=== PATIENT | female | born 1970 ===

== ENCOUNTER → 2019-06-07 | Outpatient (REF) | payer BC | LOC: M LAB LCGH 13:26 | PROVIDERS: ATTEND Obstetrics & Gynecology | DX: Z12.4 Encounter for screening for malignant neoplasm of cervix (principal) | CPT/HCPCS: 87624; G0123 ==

== ENCOUNTER → 2021-11-14 | Outpatient (CLI) | payer SELFPAY | LOC: M LABSMTC 09:19 | PROVIDERS: ATTEND Pediatrics | DX: Z11.52 Encounter for screening for COVID-19 (principal) ==

== ENCOUNTER → 2024-04-26 | Outpatient (REF) | LOC: M EMP 09:41 | PROVIDERS: ATTEND Family Medicine | DX: Z11.52 Encounter for screening for COVID-19 (principal) ==

== ENCOUNTER → 2024-06-29 | Outpatient (CLI) | LOC: M SOG 14:35 | PROVIDERS: ATTEND Orthopaedic Surgery | DX: M79.644 Pain in right finger(s) (principal) ==

== ENCOUNTER → 2024-07-26 | Outpatient (REF) | LOC: M EMP 07:55 | PROVIDERS: ATTEND Family Medicine | DX: Z11.52 Encounter for screening for COVID-19 (principal) ==